=== PATIENT | female | born 1995 | race Caucasian/White ===

== ENCOUNTER 2017-02-12 08:47 | Emergency (ER) | payer SELFPAY ==
[2017-02-12] MEDS ORDERED: Doxycycline 100 MG Cap PO ONE (09:37)
--- NOTE | 2017-02-12 09:44 | EDM.PDOC ---
ED HPI GENERAL MEDICAL PROBLEM - General Chief Complaint: Skin Complaint Stated Complaint: SWOLLEN LIP Time Seen by Provider: 02/12/17 09:10 Source of Information: Reports: Patient History Limitations: Reports: No Limitations - History of Present Illness INITIAL COMMENTS - FREE TEXT/NARRATIVE: HISTORY AND PHYSICAL: History of present illness: [21-year-old female with a past medical history of prior acne infections on her face previously with MRSA infection, now presents emergency department with a skin lesion just above the vermilion border of her left upper lip. It's tender crusty and her left upper lip has become swollen. She denies fevers chills sweats or shaking chills. No headache or stiff neck. Painless extraocular muscle movement by her description. Local discomfort only no other complaints Review of systems: As per history of present illness and below otherwise all systems reviewed and negative. Past medical history: As per history of present illness and as reviewed below otherwise noncontributory. Surgical history: As per history of present illness and as reviewed below otherwise noncontributory. Social history: No reported history of drug or alcohol abuse. Family history: As per history of present illness and as reviewed below otherwise noncontributory. Physical exam: Well-appearing patient no acute distress three-quarter centimeter crusty skin lesion above vermilion border of left upper lip with mild soft tissue edema of the left upper lip. No intraoral lesion. No fluctuance or crepitus. Local tenderness only. Painless extra ocular muscle excursion. No proptosis. No meningismus HEENT: Normocephalic, atraumatic, pupils normal and symmetrical, supple neck, no meningismus, normal color Lungs: Normal and symmetrical chest wall excursion bilateral with no tachypnea or increased work of breathing, grossly normal chest exam Heart: No tachycardia in triage Abdomen: Normal-appearing, nondistended, no visible mass or asymmetry Pelvis: Normal-appearing Genitourinary: Deferred Rectal exam: Deferred Extremities: Atraumatic, normal use and range of motion, no visible evidence of gross neurovascular compromise Neuro: Awake, alert, oriented. Normal and appropriate mental status. Cranial nerves grossly unremarkable. Motor function normal. Nonfocal neurologic exam. Diagnostics: [] Therapeutics: [[place] by mouth dose of doxycycline administered] Impression: [Cellulitis left upper lip] Plan: [Signs and symptoms consistent with cellulitis of the face likely secondary to infected acne lesion/skin pore. Well-appearing patient afebrile uncomplicated presentation. By mouth dose of Doxy given in ED and prescription dispensed electronically. Patient also use Bactroban topically. She is aware to follow-up with her PCP for reevaluation and return immediately for new severe or worsening symptoms. No further workup or treatment indicated she agrees with outpatient follow-up and strict return precautions given.] Definitive disposition and diagnosis as appropriate pending reevaluation and review of above. Left Upper Lip Pain Score (Numeric/FACES): 8 - Related Data Allergies Allergy/AdvReac Type Severity Reaction Status Date / Time No Known Allergies Allergy Verified 07/15/16 04:12 Home Meds: Home Meds Doxycycline [Vibramycin] 100 mg PO Q12HR #20 cap 02/12/17 [Rx] FLUoxetine [PROzac] 30 mg PO DAILY 02/12/17 [History] Mupirocin Oint [Bactroban Oint] 22 gm TOP TID #1 tube 02/12/17 [Rx] Social & Family History - Family History Family Medical History: Noncontributory - Tobacco Use Smoking Status *Q: Never Smoker - Caffeine Use Caffeine Use: Reports: None - Recreational Drug Use Recreational Drug Use: No ED ROS GENERAL - Review of Systems Review Of Systems: See Below (History of present illness) ED EXAM, SKIN/RASH Exam: See Below (History of present illness) Course - Vital Signs Last Recorded V/S: Last Vital Signs Temp 36.6 C 02/12/17 09:02 Pulse 90 02/12/17 09:02 Resp 16 02/12/17 09:02 BP 121/89 02/12/17 09:02 Pulse Ox 97 02/12/17 09:02 - Orders/Labs/Meds Meds: Medications Discontinued Medications Generic Name Dose Route Start Last Admin Trade Name Freq PRN Reason Stop Dose Admin Doxycycline Hyclate 100 mg 02/12/17 09:37 Vibramycin PO 02/12/17 09:38 ONETIME ONE Departure - Departure Time of Disposition: 09:40 Disposition: Home, Self-Care 01 Condition: Good Clinical Impression: Cellulitis of lip - Discharge Information Prescriptions: Doxycycline [Vibramycin] 100 mg PO Q12HR #20 cap Mupirocin Oint [Bactroban Oint] 22 gm TOP TID #1 tube Instructions: Cellulitis, Adult Referrals: PCP,None [Primary Care Provider] - Forms: ED Department Discharge Additional Instructions: The skin lesion on your face causing your left upper lip to become swollen and tender is a skin infection called cellulitis. It is likely that this is caused by MRSA which is a methicillin-resistant staph infection. finish doxycycline twice a day for 10 days as prescribed. Take ibuprofen 600 mg every 6 hours as needed for pain and Tylenol as well if necessary. You may find a small cold compresses or ice pack helpful for comfort and to minimize swelling. Follow-up with your doctor in 2 days and return immediately for new severe or worsening symptoms, specifically for fever headache, especially with stiff neck, or worsening signs of infection
[2017-02-12 10:26] VITALS: BP 107/71
== END 2017-02-12 10:00 | disposition home or self-care (01) ==
LOC: MW.ED 08:47
DX: K13.0 Diseases of lips (principal); Z79.899 Other long term (current) drug therapy
CPT/HCPCS: 99283; A9270

== ENCOUNTER 2017-08-30 14:33 | Emergency (ER) | payer SELFPAY ==
[2017-08-30 14:58] VITALS: BP 114/71
--- NOTE | 2017-08-30 15:01 | EDM.PDOC ---
ED HPI GENERAL MEDICAL PROBLEM - General Chief Complaint: Respiratory Problem Stated Complaint: LUNGS HURTS Time Seen by Provider: 08/30/17 14:46 Source of Information: Reports: Patient History Limitations: Reports: No Limitations - History of Present Illness INITIAL COMMENTS - FREE TEXT/NARRATIVE: HISTORY AND PHYSICAL: History of present illness: Patient is a 22-year-old female who presents to the emergency room with complaints of cough and pain to the chest with coughing 2 week. She denies any shortness of breath, fever, chills, abdominal pain, nausea, vomiting or diarrhea. Has been using [id number] Mucinex and cough and cold, with minimal relief. She is a pack per day smoker for the past 4 years. Has not received the influenza vaccine. Review of systems: As per history of present illness and below otherwise all systems reviewed and negative. Past medical history: As per history of present illness and as reviewed below otherwise noncontributory. Surgical history: As per history of present illness and as reviewed below otherwise noncontributory. Social history: No reported history of drug or alcohol abuse. Family history: As per history of present illness and as reviewed below otherwise noncontributory. Physical exam: General: Well-developed well-nourished 22-year-old female. Alert and oriented. Nontoxic appearing and in no acute distress. HEENT: Atraumatic, normocephalic, pupils reactive, negative for conjunctival pallor or scleral icterus, mucous membranes moist, tympanic membranes normal bilaterally, throat clear, neck supple, nontender, trachea midline. Lungs: Inspiratory wheezing noted to posterior bases bilaterally otherwise clear , breath sounds equal bilaterally, chest nontender. I nonproductive cough noted. Heart: S1S2, regular rate and rhythm Abdomen: Soft, nondistended, nontender. Negative for masses or hepatosplenomegaly. Negative for costovertebral tenderness. Pelvis: Stable nontender. Genitourinary: Deferred. Rectal: Deferred. Extremities: Atraumatic, negative for cords or calf pain. Neurovascular unremarkable. Neuro: Awake, alert, oriented. Cranial nerves II through XII unremarkable. Cerebellum unremarkable. Motor and sensory unremarkable throughout. Exam nonfocal. Negative influenza screening. X-ray shows no infiltrate or pneumonia. Due to longevity of cough and history of smoking we'll give her azithromycin and Medrol Dosepak. Patient education was completed. She voices understanding and is agreeable to plan of care. She denies any further questions at this time. Diagnostics: Chest x-ray, influenza Therapeutics: [] Impression: Bronchitis Plan: 1. X-ray is normal. Influenza was negative. Will treat with azithromycin and Medrol Dosepak. Please take as directed. May use Tylenol and/or ibuprofen as needed for pain management. Over the counter cough medications/depressant may be used. 2. Stop smoking. 3. Follow up with primary caregiver in the next couple days. Return to the ED as needed and as discussed Definitive disposition and diagnosis as appropriate pending reevaluation and review of above. Duration: Week(s): upon coughing Pain Score (Numeric/FACES): 5 - Related Data Allergies Allergy/AdvReac Type Severity Reaction Status Date / Time No Known Allergies Allergy Verified 08/30/17 14:57 Home Meds: Home Meds FLUoxetine [PROzac] 30 mg PO DAILY 02/12/17 [History] Social & Family History - Family History Family Medical History: Noncontributory - Tobacco Use Smoking Status *Q: Never Smoker - Caffeine Use Caffeine Use: Reports: None - Recreational Drug Use Recreational Drug Use: No ED ROS GENERAL - Review of Systems Review Of Systems: ROS reveals no pertinent complaints other than HPI. ED EXAM, GENERAL - Physical Exam Exam: See Below (See dictation) Course - Vital Signs Last Recorded V/S: Last Vital Signs Temp 98.7 F 08/30/17 14:57 Pulse 107 H 08/30/17 14:57 Resp 18 08/30/17 14:57 BP 114/71 08/30/17 14:57 Pulse Ox 97 08/30/17 14:57 Departure - Departure Time of Disposition: 15:53 Disposition: Home, Self-Care 01 Clinical Impression: Bronchitis - Discharge Information Referrals: PCP,None [Primary Care Provider] - Forms: ED Department Discharge Additional Instructions: The following information is given to patients seen in the emergency department who are being discharged to home. This information is to outline your options for follow-up care. We provide all patients seen in our emergency department with a follow-up referral. The need for follow-up, as well as the timing and circumstances, are variable depending upon the specifics of your emergency department visit. If you don't have a primary care physician on staff, we will provide you with a referral. We always advise you to contact your personal physician following an emergency department visit to inform them of the circumstance of the visit and for follow-up with them and/or the need for any referrals to a consulting specialist. The emergency department will also refer you to a specialist when appropriate. This referral assures that you have the opportunity for follow-up care with a specialist. All of these measure are taken in an effort to provide you with optimal care, which includes your follow-up. Under all circumstances we always encourage you to contact your private physician who remains a resource for coordinating your care. When calling for follow-up care, please make the office aware that this follow-up is from your recent emergency room visit. If for any reason you are refused follow-up, please contact the [facility] Emergency Department at and asked to speak to the emergency department charge nurse. [facility] [address] [place] [id number] 1. X-ray is normal. Influenza was negative. Will treat with azithromycin and Medrol Dosepak due to smoking history and longevity of symptoms. Please take as directed. May use Tylenol and/or ibuprofen as needed for pain management. Over the counter cough medications/depressant may be used. 2. Stop smoking. 3. Follow up with primary caregiver in the next couple days. Return to the ED as needed and as discussed
--- NOTE | 2017-08-30 15:49 | CR ---
EXAMINATION: Two-view chest (PA and Lateral views). HISTORY: Shortness of breath. FINDINGS: The trachea is midline. The cardiomediastinal silhouette is within normal limits. No pulmonary infilt rates, effusions or pneumothorax. Mild S-shaped scoliosis of the thoracic spine. IMPRESSION: No acute cardiopulmonary process.
== END 2017-08-30 16:17 | disposition home or self-care (01) ==
LOC: MW.ED 14:33
DX: J40 Bronchitis, not specified as acute or chronic (principal); Z79.899 Other long term (current) drug therapy
CPT/HCPCS: 71046; 71046-26; 87804; 99283

== ENCOUNTER 2017-12-09 08:44 | Emergency (ER) | payer MEDICAID ==
[2017-12-09] MEDS ORDERED: Sodium Chloride 0.9% 2.5 ML Syringe FLUSH PRN (08:52)
[2017-12-09] MEDS ORDERED: Sodium Chloride 0.9% 1,000 ML IV ONE (08:52)
[2017-12-09] MEDS ORDERED: LORazepam 2 MG/ML SDV IVPUSH ONE ×2 (08:52→09:32)
[2017-12-09] MEDS ORDERED: Sodium Chloride 0.9% 10 ML Syringe FLUSH PRN (08:52)
--- NOTE | 2017-12-09 08:55 | EDM.PDOC ---
ED HPI GENERAL MEDICAL PROBLEM - General Chief Complaint: Drug or Alcohol Abuse Stated Complaint: PER PT, SHE DID TOO MUCH DRUGS Time Seen by Provider: 12/09/17 08:47 - History of Present Illness INITIAL COMMENTS - FREE TEXT/NARRATIVE: HISTORY AND PHYSICAL: History of present illness: The patient is a 22-year-old female who takes medications for depression and presents to the ED with complaints of chest pain feeling like her skin is crawling and some abdominal cramping and shortness of breath that started soon after she ingested methamphetamine about an hour and a half ago. The patient admits that she is a habitual user of methamphetamine and she used her usual drug and hour and a half ago and then started having symptoms and walked here to the emergency department. She denies any cardiac or pulmonary disease and she also admits that she drank some alcohol this morning and smokes cigarettes. The patient is not very forthcoming with her history and my interview with her and in stead keeps her eyes closed and curses at me and staff about what she feels that she needs. I tried to redirect her and she will answer simple questions. She is not nauseated and she denies and says that she has an implant arm. She's had no urinary complaints or bowel complaints and she is unsure of when the last time she ate any food. She's not had a recent illnesses yesterday such as fevers chills cough runny nose or sore throat that she admits to. She says that she was in her usual state of good health when these events happened this morning. Review of systems: As per history of present illness and below otherwise all systems reviewed and negative. Past medical history: As per history of present illness and as reviewed below otherwise noncontributory. Surgical history: As per history of present illness and as reviewed below otherwise noncontributory. Social history: No reported history of drug or alcohol abuse. Family history: As per history of present illness and as reviewed below otherwise noncontributory. Physical exam: General: Well-developed thin female who is nontoxic and vital signs are noted by me. She keeps her eyes closed throughout the exam except when I ask her to open her eyes or that specific part of the exam. She is intermittently twitching and warming in the bed can stay still. She is speaking without breathlessness and without slurring of speech. HEENT: Atraumatic, normocephalic, pupils reactive, negative for conjunctival pallor or scleral icterus, mucous membranes moist, throat clear, neck supple, nontender, trachea midline. Lungs: Clear to auscultation, breath sounds equal bilaterally, chest nontender. No worker breathing wheezing or stridor Heart: S1S2, regular rhythm and tachycardic rate of my evaluation but no overt murmur can be appreciated but this exam is difficult due to the elevated heart rate Abdomen: Soft, nondistended, nontender. Bowel sounds are hyperactive Negative for masses or hepatosplenomegaly. Is no rebound or guarding Pelvis: Stable nontender. Genitourinary: Deferred. Rectal: Deferred. Extremities: Atraumatic, negative for cords or calf pain. Neurovascular unremarkable. Full range of motion without defects or deficits Neuro: Awake, alert, oriented. Cranial nerves II through XII grossly unremarkable. Cerebellum unremarkable. Motor and sensory unremarkable throughout. Exam nonfocal. She's not tremulous but she is a little bit shaky and twitchy and fidgety in the bed Skin: Normal turgor no evidence of any overt rashes or lesions and no diaphoresis Diagnostics: EKG CBC CMP amylase lipase troponin UA UDS hCG chest x-ray Therapeutics: IV O2 monitor IV fluids Ativan Please note that after my initial evaluation I went back to discuss some things with the patient and she proceeded to use up seen language in a generalized way and then also started to dictate things that she wanted to be checked out for that were not related to her presenting complaint. I tried to redirect her saying that we need to address her tachycardia and her reaction to the methamphetamine from a cardiac pulmonary and abdominal standpoint and that the things that she was discussing are more outpatient workups and that we would give her referrals for the appropriate clinics. She seemed very angry at my response and cursed at me again . 1005: Patient is currently sleeping after medication and heart rate has normalized. I discussed with her testing results is somewhat drowsy. According to the patient's conversation with the nurse she does not have a whole and requested that we contact her recruiter account manager. He has been called and is coming here. At this point the patient is medically stable and could be discharged. We will reevaluate once the patient's recruiter account manager arrives 1135: Patient is more awake but still somewhat drowsy but is trying to find a ride so that she can be disposition home. Her recruiter account manager has still not arrived here and nursing will continue to address this and we will plan on discharge. Her vital signs have normalized she has no longer twitching or fidgety and is looking much more comfortable. She is denying any symptomatology. Impression: Methamphetamine reaction, history of chronic use Definitive disposition and diagnosis as appropriate pending reevaluation and review of above. Chest Pain Score (Numeric/FACES): 7 - Related Data Allergies Allergy/AdvReac Type Severity Reaction Status Date / Time No Known Allergies Allergy Verified 12/09/17 08:55 Home Meds: Home Meds FLUoxetine [PROzac] 30 mg PO DAILY 02/12/17 [History] QUEtiapine [SEROquel] 100 mg PO BEDTIME 12/09/17 [History] Past Medical History Psychiatric History: Reports: Depression Social & Family History - Family History Family Medical History: Noncontributory - Caffeine Use Caffeine Use: Reports: None ED ROS GENERAL - Review of Systems Review Of Systems: ROS reveals no pertinent complaints other than HPI. ED EXAM, GENERAL - Physical Exam Exam: See Below (See dictation) Course - Vital Signs Last Recorded V/S: Last Vital Signs Temp 36.3 C 12/09/17 08:47 Pulse 115 H 12/09/17 09:59 Resp 16 12/09/17 09:59 BP 126/87 12/09/17 09:59 Pulse Ox 95 12/09/17 09:59 - Orders/Labs/Meds Orders: Active Orders 24 hr Category Date Time Status Blood Glucose Check, Bedside [RC] ONETIME Care 12/09/17 08:51 Active Cardiac Monitoring [RC] . DIRECTED Care 12/09/17 08:51 Active EKG Documentation Completion [RC] STAT Care 12/09/17 08:51 Active Oxygen Therapy, ED [RC] ASDIRECTED Care 12/09/17 08:51 Active Pulse Oximetry [RC] ASDIRECTED Care 12/09/17 08:51 Active Chest 1V Frontal [CR] Stat Exams 12/09/17 08:52 Taken DRUG SCREEN, URINE [URCHEM] Stat Lab 12/09/17 09:39 Ordered UA W/MICROSCOPIC [URIN] Stat Lab 12/09/17 09:39 Ordered Sodium Chloride 0.9% [Saline Flush] Med 12/09/17 08:52 Active 10 ml FLUSH ASDIRECTED PRN Sodium Chloride 0.9% [Saline Flush] Med 12/09/17 08:52 Active 2.5 ml FLUSH ASDIRECTED PRN Saline Lock Insert [OM.PC] Stat Oth 12/09/17 08:51 Ordered Medication Orders Sodium Chloride (Saline Flush) 10 ml FLUSH ASDIRECTED PRN PRN Reason: Keep Vein Open Sodium Chloride (Saline Flush) 2.5 ml FLUSH ASDIRECTED PRN PRN Reason: Keep Vein Open Labs: Laboratory Tests 12/09/17 12/09/17 12/09/17 Range/Units 08:55 08:55 08:55 WBC 8.79 (4.0-11.0) K/uL RBC 4.81 (4.30-5.90) M/uL Hgb 14.9 (12.0-16.0) g/dL Hct 42.6 (36.0-46.0) % MCV 88.6 (80.0-98.0) fL MCH 31.0 (27.0-32.0) pg MCHC 35.0 (31.0-37.0) g/dL RDW Std Deviation 40.0 (28.0-62.0) fl RDW Coeff of Tiarra 12 (11.0-15.0) % Plt Count 200 (150-400) K/uL MPV 10.70 (7.40-12.00) fL Neut % (Auto) 70.3 (48.0-80.0) % Lymph % (Auto) 19.7 (16.0-40.0) % [place] % (Auto) 9.3 (0.0-15.0) % Eos % (Auto) 0.2 (0.0-7.0) % Baso % (Auto) 0.5 (0.0-1.5) % Neut # (Auto) 6.2 H (1.4-5.7) K/uL Lymph # (Auto) 1.7 (0.6-2.4) K/uL [place] # (Auto) 0.8 (0.0-0.8) K/uL Eos # (Auto) 0.0 (0.0-0.7) K/uL Baso # (Auto) 0.0 (0.0-0.1) K/uL Nucleated RBC % 0.0 /100WBC Nucleated RBCs # 0 K/uL Sodium 142 (136-145) mmol/L Potassium 3.7 (3.5-5.1) mmol/L Chloride 103 (98-107) mmol/L Carbon Dioxide 26.7 (21.0-32.0) mmol/L BUN 16 (7.0-18.0) mg/dL Creatinine 1.1 H (0.6-1.0) mg/dL Est Cr Clr Drug Dosing 59.17 mL/min Estimated GFR (MDRD) > 60.0 ml/min Glucose 113 H (74-106) mg/dL POC Glucose (60-110) mg/dL Calcium 9.4 (8.5-10.1) mg/dL Total Bilirubin 0.5 (0.2-1.0) mg/dL AST 23 (15-37) IU/L ALT 26 (14-63) IU/L Alkaline Phosphatase 69 (46-116) U/L Troponin I < 0.050 (0.000-0.056) ng/mL Total Protein 7.6 (6.4-8.2) g/dL Albumin 4.7 (3.4-5.0) g/dL Globulin 2.9 (2.0-3.5) g/dL Albumin/Globulin Ratio 1.6 (1.3-2.8) Amylase 28 (25-115) U/L Lipase 77 (73-393) U/L HCG, Qual NEGATIVE (NEG) Urine Color Urine Appearance Urine pH (5.0-8.0) Ur Specific [place] (1.001-1.035) Urine Protein (NEGATIVE) mg/dL Urine Glucose (UA) (NEGATIVE) mg/dL Urine Ketones (NEGATIVE) mg/dL Urine Occult Blood (NEGATIVE) Urine Nitrite (NEGATIVE) Urine Bilirubin (NEGATIVE) Urine Urobilinogen (<2.0) EU/dL Ur Leukocyte Esterase (NEGATIVE) Urine RBC (0-2/HPF) Urine WBC (0-5/HPF) Ur Epithelial Cells (NONE-FEW) Urine Bacteria (NEGATIVE) Urine Opiates Screen (NEGATIVE) Ur Oxycodone Screen (NEGATIVE) Urine Methadone Screen (NEGATIVE) Ur Barbiturates Screen (NEGATIVE) Ur Phencyclidine Scrn (NEGATIVE) Ur Amphetamine Screen (NEGATIVE) U Methamphetamines Scrn (NEGATIVE) U Benzodiazepines Scrn (NEGATIVE) U Cocaine Metab Screen (NEGATIVE) U Marijuana (THC) Screen (NEGATIVE) Ethyl Alcohol 4 mg/dL 12/09/17 12/09/17 12/09/17 Range/Units 09:06 09:39 09:39 WBC (4.0-11.0) K/uL RBC (4.30-5.90) M/uL Hgb (12.0-16.0) g/dL Hct (36.0-46.0) % MCV (80.0-98.0) fL MCH (27.0-32.0) pg MCHC (31.0-37.0) g/dL RDW Std Deviation (28.0-62.0) fl RDW Coeff of Tiarra (11.0-15.0) % Plt Count (150-400) K/uL MPV (7.40-12.00) fL Neut % (Auto) (48.0-80.0) % Lymph % (Auto) (16.0-40.0) % [place] % (Auto) (0.0-15.0) % Eos % (Auto) (0.0-7.0) % Baso % (Auto) (0.0-1.5) % Neut # (Auto) (1.4-5.7) K/uL Lymph # (Auto) (0.6-2.4) K/uL [place] # (Auto) (0.0-0.8) K/uL Eos # (Auto) (0.0-0.7) K/uL Baso # (Auto) (0.0-0.1) K/uL Nucleated RBC % /100WBC Nucleated RBCs # K/uL Sodium (136-145) mmol/L Potassium (3.5-5.1) mmol/L Chloride (98-107) mmol/L Carbon Dioxide (21.0-32.0) mmol/L BUN (7.0-18.0) mg/dL Creatinine (0.6-1.0) mg/dL Est Cr Clr Drug Dosing mL/min Estimated GFR (MDRD) ml/min Glucose (74-106) mg/dL POC Glucose 100 (60-110) mg/dL Calcium (8.5-10.1) mg/dL Total Bilirubin (0.2-1.0) mg/dL AST (15-37) IU/L ALT (14-63) IU/L Alkaline Phosphatase (46-116) U/L Troponin I (0.000-0.056) ng/mL Total Protein (6.4-8.2) g/dL Albumin (3.4-5.0) g/dL Globulin (2.0-3.5) g/dL Albumin/Globulin Ratio (1.3-2.8) Amylase (25-115) U/L Lipase (73-393) U/L HCG, Qual (NEG) Urine Color YELLOW Urine Appearance CLEAR Urine pH 6.5 (5.0-8.0) Ur Specific [place] 1.010 (1.001-1.035) Urine Protein NEGATIVE (NEGATIVE) mg/dL Urine Glucose (UA) NEGATIVE (NEGATIVE) mg/dL Urine Ketones NEGATIVE (NEGATIVE) mg/dL Urine Occult Blood LARGE H (NEGATIVE) Urine Nitrite NEGATIVE (NEGATIVE) Urine Bilirubin NEGATIVE (NEGATIVE) Urine Urobilinogen 0.2 (<2.0) EU/dL Ur Leukocyte Esterase NEGATIVE (NEGATIVE) Urine RBC 8-10 (0-2/HPF) Urine WBC 0-1 (0-5/HPF) Ur Epithelial Cells RARE (NONE-FEW) Urine Bacteria RARE (NEGATIVE) Urine Opiates Screen NEGATIVE (NEGATIVE) Ur Oxycodone Screen NEGATIVE (NEGATIVE) Urine Methadone Screen NEGATIVE (NEGATIVE) Ur Barbiturates Screen NEGATIVE (NEGATIVE) Ur Phencyclidine Scrn NEGATIVE (NEGATIVE) Ur Amphetamine Screen POSITIVE (NEGATIVE) U Methamphetamines Scrn POSITIVE (NEGATIVE) U Benzodiazepines Scrn NEGATIVE (NEGATIVE) U Cocaine Metab Screen NEGATIVE (NEGATIVE) U Marijuana (THC) Screen NEGATIVE (NEGATIVE) Ethyl Alcohol mg/dL Meds: Medications Generic Name Dose Route Start Last Admin Trade Name Freq PRN Reason Stop Dose Admin Sodium Chloride 10 ml 12/09/17 08:52 Saline Flush FLUSH ASDIRECTED PRN Keep Vein Open Sodium Chloride 2.5 ml 12/09/17 08:52 Saline Flush FLUSH ASDIRECTED PRN Keep Vein Open Discontinued Medications Generic Name Dose Route Start Last Admin Trade Name Freq PRN Reason Stop Dose Admin Sodium Chloride 1,000 mls @ 999 mls/hr 12/09/17 08:52 12/09/17 08:55 Normal Saline IV 12/09/17 09:52 999 mls/hr STAT ONE Administration Lorazepam 1 mg 12/09/17 08:52 12/09/17 08:55 Ativan IVPUSH 12/09/17 08:53 1 mg ONETIME ONE Administration Lorazepam 1 mg 12/09/17 09:32 12/09/17 09:41 Ativan IVPUSH 12/09/17 09:33 1 mg ONETIME ONE Administration Departure - Departure Time of Disposition: 11:45 Disposition: Home, Self-Care 01 Condition: Good Clinical Impression: Methamphetamine use - Discharge Information Forms: ED Department Discharge Additional Instructions: The following information is given to patients seen in the emergency department who are being discharged to home. This information is to outline your options for follow-up care. We provide all patients seen in our emergency department with a follow-up referral. The need for follow-up, as well as the timing and circumstances, are variable depending upon the specifics of your emergency department visit. If you don't have a primary care physician on staff, we will provide you with a referral. We always advise you to contact your personal physician following an emergency department visit to inform them of the circumstance of the visit and for follow-up with them and/or the need for any referrals to a consulting specialist. The emergency department will also refer you to a specialist when appropriate. This referral assures that you have the opportunity for followup care with a specialist. All of these measure are taken in an effort to provide you with optimal care, which includes your followup. Under all circumstances we always encourage you to contact your private physician who remains a resource for coordinating your care. When calling for followup care, please make the office aware that this follow-up is from your recent emergency room visit. If for any reason you are refused follow-up, please contact the [facility] emergency department at and ask to speak to the emergency department charge nurse. [facility] Primary care- Internal Medicine and Family [address] [id number] Please push hydration and try to refrain from using drugs.: Schedule a follow- up appointment with one of our providers in the clinic and also use resources you have been given today by nursing to connect with outpatient care for your drug use. ER as needed and as discussed - My Orders Last 24 Hours: My Active Orders 12/09/17 08:51 Blood Glucose Check, Bedside [RC] ONETIME Cardiac Monitoring [RC] . DIRECTED EKG Documentation Completion [RC] STAT Oxygen Therapy, ED [RC] ASDIRECTED Pulse Oximetry [RC] ASDIRECTED Saline Lock Insert [OM.PC] Stat 12/09/17 08:52 Chest 1V Frontal [CR] Stat Sodium Chloride 0.9% [Saline Flush] 10 ml FLUSH ASDIRECTED PRN Sodium Chloride 0.9% [Saline Flush] 2.5 ml FLUSH ASDIRECTED PRN 12/09/17 09:39 DRUG SCREEN, URINE [URCHEM] Stat UA W/MICROSCOPIC [URIN] Stat - Assessment/Plan Last 24 Hours: My Active Orders 12/09/17 08:51 Blood Glucose Check, Bedside [RC] ONETIME Cardiac Monitoring [RC] . DIRECTED EKG Documentation Completion [RC] STAT Oxygen Therapy, ED [RC] ASDIRECTED Pulse Oximetry [RC] ASDIRECTED Saline Lock Insert [OM.PC] Stat 12/09/17 08:52 Chest 1V Frontal [CR] Stat Sodium Chloride 0.9% [Saline Flush] 10 ml FLUSH ASDIRECTED PRN Sodium Chloride 0.9% [Saline Flush] 2.5 ml FLUSH ASDIRECTED PRN 12/09/17 09:39 DRUG SCREEN, URINE [URCHEM] Stat UA W/MICROSCOPIC [URIN] Stat
[2017-12-09 09:22] LABS: CHLORIDE,CL 103 mmol/L (98-107); SODIUM,NA 142 mmol/L (136-145)
[2017-12-09 10:00] VITALS: BP 126/87
--- NOTE | 2017-12-10 14:18 | CR ---
EXAM DATE: 12/09/17 PATIENT'S AGE: 22 Patient: ZIA MONTERO Facility: [place], [place] Site . Site : [id number] Study: XRay Chest [id number]/28/2018 9:21:30 AM Ordering Physician: Hesham Ying Final Report: INDICATION: Chest pain; shortness of breath. COMPARISON: None. TECHNIQUE: Portable AP chest. FINDINGS: Normal size cardiac silhouette. No acute pneumonic infiltrates or CHF. No pneumothorax or pleural effusion. Impression: Negative portable AP chest. Dictated by Lety Valencia MD @ Dec 09 2017 9:22AM (Electronic Signature) Report Signed by Proxy. MARIANO
== END 2017-12-09 12:13 | disposition home or self-care (01) ==
LOC: MW.ED 08:44
DX: F15.90 Other stimulant use, unspecified, uncomplicated (principal); Z79.899 Other long term (current) drug therapy
CPT/HCPCS: 36415; 71045; 80053; 80305; 81001; 82150; 82962; 83690; 84484; 84703; 85025; 93005; 96361; 96374; 96376; 99285; G0480; J2060; J7040